=== PATIENT | female | born 2000 | race Two or more races ===

== ENCOUNTER 2024-05-21 09:44 | Emergency (ER) | payer OTHER ==
[~2024-05-21] VITALS: Ht 149.9 cm; Wt 66.2 kg
[2024-05-21] MEDS ORDERED: PROMETRIUM200 MG (10:13)
[2024-05-21] MEDS ORDERED: CEFTRIAXONE SODIUM 2,000 MG VIAL IV STA (11:32)
[2024-05-21] MEDS ORDERED: CEFTRIAXONE SODIUM 2,000 MG VIAL ONE (11:45)
[2024-05-21 12:12] LABS: HEMOGLOBIN 12.7 g/dL (12.0-15.00); MEAN CELL VOLUME 86.8 fL (80.00-100.00); MEAN CORPUSCULAR HEMOGLOBIN 30.7 pg (27.00-32.0); MEAN CORPUSCULAR HGB CONC 35.4 g/dl (32.0-36.0); PLATELET COUNT 344 K/uL (150-450); RED BLOOD COUNT 4.14 M/uL (4.00-6.00); RED CELL DISTRIBUTION WIDTH 12.6 % (11.5-14.5)
[2024-05-21 13:00] LABS: CALCIUM 9.6 mg/dL (8.5-10.1); CREATININE SERUM 0.45 mg/dL (0.55-1.02); GFR 172.66; POTASSIUM 3.89 mEq/L (3.5-5.1)
== END 2024-05-21 13:58 | disposition home or self-care (01) ==
LOC: ER 09:45
PROVIDERS: General Practice
DX: K05.10 Chronic gingivitis, plaque induced (principal)

== ENCOUNTER 2024-11-08 10:14 | Outpatient (CLI) | payer OTHER ==
[2024-11-08 09:32] VITALS: BP 104/65
[~2024-11-08 10:14] MED LIST: PROMETRIUM200 MG
[2024-11-08] MEDS ORDERED: PRENATABS RX T1 EACH PO (10:53)
[2024-11-08] MEDS ORDERED: CHILDREN'S ASPI81 MG PO (10:54)
[2024-11-08] MEDS ORDERED: FAMOTIDINE/PF 20 MG/2 ML VIAL IV SCH (11:00)
[2024-11-08] MEDS ORDERED: RINGERS SOLUTION,LACTATED 1,000 ML IV SCH (11:00)
[2024-11-08 11:31] LABS: HEMATOCRIT 35.8 % (36.0-45.00); MEAN CELL VOLUME 86.4 fL (80.00-100.00); MEAN CORPUSCULAR HEMOGLOBIN 28.9 pg (27.00-32.0); MEAN CORPUSCULAR HGB CONC 33.4 g/dl (32.0-36.0); PLATELET COUNT 339 K/uL (150-450); RED BLOOD COUNT 4.14 M/uL (4.00-6.00); RED CELL DISTRIBUTION WIDTH 13.1 % (11.5-14.5)
[2024-11-08 11:34] LABS: URINE APPEARANCE Clear; URINE BILIRRUBIN Small (NEGATIVE); URINE BLOOD Negative; URINE COLOR Dark Yellow; URINE GLUCOSE Negative (NEGATIVE); URINE LEUKOCYTE Trace; URINE NITRATE Negative; URINE PROTEIN Trace (NEGATIVE)
[2024-11-08 11:37] LABS: URINE BACTERIA 873.8 uL (0.0-1933); URINE EPITHELIAL CELLS 126.2 uL (0.0-38.8); URINE RBC 2.6 uL (0.0-20.8); URINE WBC 21.9 uL (0.0-23.2)
[2024-11-08 11:58] LABS: URINE CAST 0.29 uL (0.0-1.40); URINE KETONE 40 (NEGATIVE)
[2024-11-08 12:57] LABS: ALBUMIN 2.7 gm/dL (3.4-5.0); BILIRUBIN TOTAL 1.44 mg/dL (0.3-1.2); CALCIUM 9.3 mg/dL (8.5-10.1); CREATININE SERUM 0.48 mg/dL (0.55-1.02); GFR 158.89; GLOBULINA 4.4 G/DL (2.4-3.5); POTASSIUM 4.07 mEq/L (3.5-5.1); TOTAL PROTEIN 7.1 gm/dL (6.4-8.2)
[2024-11-08] MEDS ORDERED: FAMOTIDINE/PF 20 MG/2 ML VIAL ONE (13:44)
[2024-11-08 15:38] VITALS: BP 100/60
[2024-11-08 18:59] VITALS: BP 97/67
[2024-11-08 22:35] VITALS: BP 97/67
== END 2024-11-08 22:38 | disposition home or self-care (01) ==
LOC: OBS/DEL 10:14
PROVIDERS: ATTEND Obstetrics & Gynecology
DX: O21.2 Late vomiting of pregnancy (principal); Z3A.35 35 weeks gestation of pregnancy; R10.2 Pelvic and perineal pain

== ENCOUNTER 2024-11-23 19:08 | Inpatient (IN) | payer OTHER ==
[~2024-11-23] VITALS: Ht 149.9 cm; Wt 2.3 kg
[~2024-11-23 19:08] MED LIST changes: +CHILDREN'S ASPI81 MG PO; +PRENATABS RX T1 EACH PO
[2024-11-23 19:35] VITALS: BP 106/68
[2024-11-23 20:07] LABS: HEMATOCRIT 35.5 % (36.0-45.00); MEAN CELL VOLUME 86.4 fL (80.00-100.00); MEAN CORPUSCULAR HEMOGLOBIN 29.3 pg (27.00-32.0); MEAN CORPUSCULAR HGB CONC 33.9 g/dl (32.0-36.0); PLATELET COUNT 386 K/uL (150-450); RED BLOOD COUNT 4.11 M/uL (4.00-6.00); RED CELL DISTRIBUTION WIDTH 13.4 % (11.5-14.5)
[2024-11-23 20:10] LABS: URINE APPEARANCE Clear; URINE BILIRRUBIN Negative (NEGATIVE); URINE BLOOD Moderate; URINE COLOR Yellow; URINE GLUCOSE Negative (NEGATIVE); URINE KETONE Trace (NEGATIVE); URINE LEUKOCYTE Negative; URINE NITRATE Negative; URINE PROTEIN 30 (NEGATIVE)
[2024-11-23 20:11] LABS: URINE BACTERIA 3398.9 uL (0.0-1933); URINE CAST 2.94 uL (0.0-1.40); URINE EPITHELIAL CELLS 183.4 uL (0.0-38.8); URINE RBC 373.5 uL (0.0-20.8); URINE WBC 40.8 uL (0.0-23.2)
[2024-11-23] MEDS ORDERED: CEFAZOLIN SODIUM 1,000 MG VIAL ONE (20:14)
[2024-11-23 20:23] LABS: URINE YEAST NEGATIVE /hpf
[2024-11-23 20:27] LABS: INR < 0.93; PARTIAL THROMBOPLASTIN TIME 31.9 SECONDS (22.0-34.0); PROTHROMBIN TIME 10.2 SECONDS (9.0-11.5)
[2024-11-23] MEDS ORDERED: RINGERS SOLUTION,LACTATED 1,000 ML IV SCH ×2 (20:45→21:45)
[2024-11-23] MEDS ORDERED: CEFAZOLIN SODIUM 1,000 MG VIAL IV SCH (20:45)
[2024-11-23] MEDS ORDERED: OXYTOCIN 10 UNITS/ML VIAL ONE (20:56)
[2024-11-23] MEDS ORDERED: ERYTHROMYCIN BASE OPHT 1GM EACH TUBE OP ONE (20:56)
[2024-11-23] MEDS ORDERED: KETOROLAC TROMETHAMINE 60 MG VIAL IM STA (21:40)
[2024-11-23] MEDS ORDERED: MEPERIDINE HCL/PF 50 MG/ML VIAL IM PRN (21:45)
[2024-11-23] MEDS ORDERED: OXYTOCIN 1,000 ML IV SCH (21:45)
[2024-11-23] MEDS ORDERED: PROMETHAZINE HCL 25 MG/ML AMPUL IM PRN (21:45)
[2024-11-23] MEDS ORDERED: CHLORHEXIDINE GLUCONATE 120 ML BOTTLE TOP SCH (21:45)
[2024-11-23] MEDS ORDERED: MORPHINE SULFATE 4 MG/ML VIAL IV ONE (22:55)
[2024-11-24] MEDS ORDERED: MORPHINE SULFATE 4 MG/ML VIAL IV ONE (00:10)
[2024-11-24] MEDS ORDERED: KETOROLAC TROMETHAMINE 60 MG VIAL IM ONE (00:22)
[2024-11-24] MEDS ORDERED: OXYTOCIN 10 UNITS/ML VIAL ONE (00:22)
[2024-11-24 00:38] LABS: MEAN CELL VOLUME 84.3 fL (80.00-100.00); PLATELET COUNT 351 K/uL (150-450); RED BLOOD COUNT 3.91 M/uL (4.00-6.00); RED CELL DISTRIBUTION WIDTH 13.4 % (11.5-14.5)
[2024-11-24 00:39] LABS: HEMOGLOBIN 11.2 g/dL (12.0-15.00); MEAN CORPUSCULAR HEMOGLOBIN 28.6 pg (27.00-32.0)
[2024-11-24 01:48] VITALS: BP 111/71
[2024-11-24 07:47] VITALS: BP 105/67
[2024-11-24] MEDS ORDERED: OxyCODONE HCL/APAP UD (PERCOCET) PO PRN (09:00)
[2024-11-24 13:19] VITALS: BP 95/62
[2024-11-24 16:12] VITALS: BP 90/60
[2024-11-25] VITALS: BP 93/60
[2024-11-25 08:24] VITALS: BP 105/68
== END 2024-11-25 16:49 | disposition home or self-care (01) | DRG 785 ==
LOC: LDR 19:08 → OB/GYN 19:08 → O/R 21:17 → OB/GYN 22:46
PROVIDERS: ADMIT Obstetrics & Gynecology; ATTEND Obstetrics & Gynecology
PROC: 0UB70ZZ Excision of Bilateral Fallopian Tubes, Open Approach (ICD-10-PCS; 2024-11-23)
PROC: 4A1HXCZ Monitoring of Products of Conception, Cardiac Rate, External Approach (ICD-10-PCS; 2024-11-23)
PROC: 10D00Z1 Extraction of Products of Conception, Low, Open Approach (ICD-10-PCS; principal; 2024-11-23 19:15)
DX: O42.02 Full-term premature rupture of membranes, onset of labor within 24 hours of rupture (principal); O34.211 Maternal care for low transverse scar from previous cesarean delivery; Z3A.38 38 weeks gestation of pregnancy; Z37.0 Single live birth; Z30.2 Encounter for sterilization